=== PATIENT | female | born 1955 | race Caucasian/White ===

== ENCOUNTER → 2017-12-01 | Outpatient (CLI) | payer MEDICARE ==
[2017-12-01 15:51] LABS: MICROSCOPIC NOT IND
[2017-12-01 15:52] LABS: BASOPHILS # (AUTO) 0.05 x10^3/uL (0-0.1); BASOPHILS % (AUTO) 1 % (0-1); EOSINOPHILS # (AUTO) 0.34 x10^3/uL (0-0.4); EOSINOPHILS % (AUTO) 6 % (1-7); LYMPHOCYTES # (AUTO) 1.81 x10^3/uL (1-3.4); LYMPHOCYTES % (AUTO) 33 % (22-44); MD NO; MEAN CORPUSCULAR HGB CONC 33.5 g/dL (32.4-35.8); MEAN CORPUSCULAR VOLUME 86.4 fL (80-100); MEAN PLATELET VOLUME 8.4 fL (7.4-10.4); MONOCYTES # (AUTO) 0.48 x10^3/uL (0.2-0.8); MONOCYTES % (AUTO) 9 % (2-9); NEUTROPHILS # (AUTO) 2.91 x10^3/uL (1.8-6.8); NEUTROPHILS % (AUTO) 52 % (42-75); PLATELET COUNT 200 x10^3/uL (130-400); RED BLOOD COUNT 5.31 x10^6/uL (3.82-5.3); RED CELL DISTRIBUTION WIDTH 14.7 % (9.6-15.2)
[2017-12-01 15:53] LABS: CULTURE INDICATED? NO
[2017-12-01 16:01] LABS: INTERNATIONAL NORMALIZED RATIO 1.08 (0.93-1.1); PROTHROMBIN TIME 11.1 Seconds (9.6-11.5)
[2017-12-01 16:06] LABS: ALBUMIN 3.3 g/dL (3.4-5.0); ANION GAP 8 mmol/L (5-15); CHLORIDE 101 mmol/L (98-107)
[2017-12-01 16:08] LABS: ALANINE AMINOTRANSFERASE 46 U/L (12-78); ALKALINE PHOSPHATASE 110 U/L (45-117); BILIRUBIN,TOTAL 0.4 mg/dL (0.2-1.0); CREATININE 0.78 mg/dL (0.55-1.02); TOTAL PROTEIN 8.5 g/dL (6.4-8.2)
[2017-12-01 16:13] LABS: HEMOGLOBIN A1C 5.9 % (4.2-6.3)
== END | disposition home or self-care (01) ==
LOC: STAR 14:32
PROVIDERS: ATTEND Orthopaedic Surgery
DX: Z01.818 Encounter for other preprocedural examination (principal); I51.7 Cardiomegaly; R00.1 Bradycardia, unspecified; S32.45 Transverse fracture of acetabulum; X58.XXXD Exposure to other specified factors, subsequent encounter
CPT/HCPCS: 36415; 80053; 81003; 83036; 85025; 85610; 85730; 87081; 87806; 93005; G0475

== ENCOUNTER → 2017-12-03 | Outpatient (CLI) | payer MEDICARE ==
[~2017-12-03] MED LIST: ALBU18HF INH; ALBU5SOL6 INH; APOAEQUORIN PO; CHOL2000 PO; CLON-364 PO; FLUT1DIS IH; FOLI0.4T2 PO; GABA300C10 PO; Prevagen PO; THIA100T27 PO; TRAM50TA2 PO; TRAZ50TA18 PO; UMEC62.5 INH
[2017-12-03 15:01] LABS: AMPHETAMINE SCREEN, URINE Negative (Negative); BARBITURATE SCREEN, URINE Negative (Negative); BENZODIAZEPINE SCREEN, URINE Negative (Negative); CANNABINOID SCREEN, URINE Negative (Negative); COCAINE SCREEN, URINE Negative (Negative); METHADONE SCREEN, URINE Negative (Negative); OPIATE SCREEN, URINE Negative (Negative)
== END | disposition home or self-care (01) ==
LOC: STAR 14:01
PROVIDERS: ATTEND Orthopaedic Surgery
DX: Z01.818 Encounter for other preprocedural examination (principal); S32.45 Transverse fracture of acetabulum; X58.XXXD Exposure to other specified factors, subsequent encounter
CPT/HCPCS: 80307

== ENCOUNTER 2018-02-23 08:33 | Inpatient (IN) | payer MEDICARE ==
[~2018-02-23] VITALS: Ht 167.6 cm; Wt 90.1 kg
[~2018-02-23 08:33] MED LIST changes: -CLON-364 PO; +CLON0.5T11 PO; +EPINEPHRINE 1 MG/ML, 1ML ONE; +IBUP200C8 PO; +IPRA12.9 INH; +KETOROLAC 60 MG/2 ML ONE; +RANI150T4 PO; +ROPIvacaine/PF 0.2%, 20 ML ONE; +TRANEXAMIC ACID 100 MG/ML, 10ML ONE; +TRAZ-136 PO; -TRAZ50TA18 PO
[2018-02-23] MEDS ORDERED: LACTATED RINGERS 1,000 ML IV SCH (09:24)
[2018-02-23] MEDS ORDERED: ACETAMINOPHEN 500 MG TABLET PO ONE (09:30)
[2018-02-23] MEDS ORDERED: GABAPENTIN 300 MG CAPSULE PO ONE (09:30)
[2018-02-23 09:31] LABS: AMPHETAMINE SCREEN, URINE Negative (Negative); BARBITURATE SCREEN, URINE Negative (Negative); BENZODIAZEPINE SCREEN, URINE Negative (Negative); CANNABINOID SCREEN, URINE Negative (Negative); COCAINE SCREEN, URINE Negative (Negative); METHADONE SCREEN, URINE Negative (Negative); OPIATE SCREEN, URINE Negative (Negative)
[2018-02-23 09:34] VITALS: BP 145/92
[2018-02-23] MEDS ORDERED: QUET300T5 PO (09:40)
[2018-02-23] MEDS ORDERED: FENTANYL PF 250 MCG/5ML ONE (11:07)
[2018-02-23] MEDS ORDERED: MIDAZOLAM 1 MG/ML, 2ML ONE (11:07)
[2018-02-23] MEDS ORDERED: NEOSTIGMINE 1 MG/ML, 10ML ONE (11:08)
[2018-02-23] MEDS ORDERED: GLYCOPYRROLATE 0.4 MG/2 ML, 2ML ONE (11:08)
[2018-02-23] MEDS ORDERED: ROCURONIUM 10MG/ML,5ML ONE (11:08)
[2018-02-23] MEDS ORDERED: PROPOFOL 10 MG/ML, 20ML ONE (11:08)
[2018-02-23] MEDS ORDERED: CEFAZOLIN 1,000 MG ONE ×2 (11:09)
[2018-02-23] MEDS ORDERED: WATER-INJECTION,STERILE 10 ML IV ONE (11:09)
[2018-02-23] MEDS ORDERED: DEXAMETHASONE 4 MG/ML, 1ML ONE ×2 (11:10)
[2018-02-23] MEDS ORDERED: ONDANSETRON 2MG/ML, 2ML ONE ×2 (11:11)
[2018-02-23] MEDS ORDERED: PROMETHAZINE 12.5 MG SUPP PR PRN ×2 (12:30→15:00)
[2018-02-23] MEDS ORDERED: hydrALAzine 20 MG/ML, 1ML IV PRN (12:30)
[2018-02-23] MEDS ORDERED: PROMETHAZINE 25 MG SUPP PR PRN (12:30)
[2018-02-23] MEDS ORDERED: ONDANSETRON 2MG/ML, 2ML IV PRN ×2 (12:30→15:00)
[2018-02-23] MEDS ORDERED: PROMETHAZINE 25 MG/ML, 1ML IV PRN (12:30)
[2018-02-23] MEDS ORDERED: LABETALOL 5MG/ML, 20ML IV PRN (12:30)
[2018-02-23] MEDS ORDERED: MEPERIDINE/PF 25MG/0.5ML IVPush PRN (12:30)
[2018-02-23] MEDS ORDERED: ONDANSETRON ODT 8 MG PO PRN (12:30)
[2018-02-23] MEDS ORDERED: ALBUTEROL/IPRATROPIUM 2.5MG/0.5MG, 3 ML NPPB PRN (12:30)
[2018-02-23] MEDS ORDERED: OXYcodone 5 MG/5 ML ORAL.SOL UDC PO PRN (12:30)
[2018-02-23] MEDS ORDERED: MORPHINE SULFATE 4 MG/ML, 1ML IVPush PRN (12:30)
[2018-02-23] MEDS ORDERED: FENTANYL PF 100 MCG/2ML IV PRN (12:30)
[2018-02-23] MEDS ORDERED: HYDROmorphone 1 MG/ML, 1ML IV PRN ×2 (12:30→15:00)
[2018-02-23] MEDS ORDERED: PROMETHAZINE 25 MG/ML, 1ML IM PRN ×3 (12:30→15:00)
[2018-02-23] MEDS ORDERED: ALBUTEROL SULFATE 2.5 MG/3 ML NPPB PRN (12:30)
[2018-02-23] MEDS ORDERED: PHENYLEPHRINE 10 MG/ML ONE (12:45)
[2018-02-23] MEDS ORDERED: FENTANYL PF 100 MCG/2ML ONE (13:59)
[2018-02-23] MEDS ORDERED: MAGNESIUM HYDROXIDE 8%, 30ML UDC PO PRN (15:00)
[2018-02-23] MEDS ORDERED: DIPHENHYDRAMINE 25 MG CAPSULE PO PRN (15:00)
[2018-02-23] MEDS ORDERED: TRANEXAMIC ACID 1,000 MG in SODIUM CHLORIDE 0.9% 100 ML IVPB ONE (15:00)
[2018-02-23] MEDS ORDERED: BISACODYL 10 MG SUPP PR PRN (15:00)
[2018-02-23] MEDS ORDERED: SENNA/DOCUSATE TABLET PO PRN (15:00)
[2018-02-23] MEDS ORDERED: ONDANSETRON 4 MG TABLET PO PRN (15:00)
[2018-02-23] MEDS ORDERED: ACETAMINOPHEN 325 MG TABLET PO PRN (15:00)
[2018-02-23] MEDS ORDERED: ALUMINUM/MAG/SIMETHICONE 30 ML UDC PO PRN (15:00)
[2018-02-23] MEDS: OXYcodone IR 5MG TABLET PO PRN (17:20)
[2018-02-23] MEDS ORDERED: HYDROcodone/APAP 5/325 TABLET PO PRN (19:30)
[2018-02-23] MEDS ORDERED: D5%-0.45NACL+KCL 20MEQ 1,000 ML IV SCH (19:30)
[2018-02-23] MEDS ORDERED: morphine SULFATE 10 MG/ML, 1ML IVPush PRN (19:30)
[2018-02-23 20:00] VITALS: BP 100/69
[2018-02-23] MEDS: D5%-0.45NACL+KCL 20MEQ 1,000 ML IV SCH (20:54)
[2018-02-23] MEDS: FAMOTIDINE 20 MG TABLET PO SCH (20:55)
[2018-02-23] MEDS: DOCUSATE 100 MG CAPSULE PO SCH (20:55)
[2018-02-23] MEDS: CEFAZOLIN PMX 1GM/50ML 50 ML IVPB SCH (20:55)
[2018-02-23] MEDS ORDERED: QUETIAPINE 200 MG TABLET PO SCH (21:00)
[2018-02-23] MEDS: TRAZODONE 50MG TABLET PO SCH (21:00)
[2018-02-23] MEDS: GABAPENTIN 300 MG CAPSULE PO SCH (22:42)
[2018-02-23 23:49] VITALS: BP 108/62
[2018-02-24 02:50] VITALS: BP 142/75
[2018-02-24] MEDS: D5%-0.45NACL+KCL 20MEQ 1,000 ML IV SCH ×2 (04:36→17:00)
[2018-02-24] MEDS: ASPIRIN 81 MG TABLET EC PO SCH ×2 (04:43→17:40)
[2018-02-24] MEDS: CEFAZOLIN PMX 1GM/50ML 50 ML IVPB SCH (04:43)
[2018-02-24] MEDS ORDERED: DEXAMETHASONE 4 MG/ML, 1ML IVPush SCH (06:00)
[2018-02-24 07:43] VITALS: BP 97/63
[2018-02-24] MEDS: INCRUSE ELLIPTA 62.5 MG SCH (07:46)
[2018-02-24] MEDS: DOCUSATE 100 MG CAPSULE PO SCH ×2 (07:47→19:51)
[2018-02-24] MEDS: TAMSULOSIN 0.4 MG CAP.ER.24H PO SCH (07:47)
[2018-02-24] MEDS: GABAPENTIN 300 MG CAPSULE PO SCH ×3 (07:47→19:51)
[2018-02-24] MEDS: FAMOTIDINE 20 MG TABLET PO SCH ×2 (07:47→19:51)
[2018-02-24] MEDS: FOLIC ACID 1 MG TABLET PO SCH (07:50)
[2018-02-24] MEDS ORDERED: CELE200C PO (09:09)
[2018-02-24] MEDS ORDERED: TRAM50TA2 PO (09:09)
[2018-02-24] MEDS ORDERED: DOCU-131 PO (09:09)
[2018-02-24] MEDS ORDERED: ASPI-621 PO (09:09)
[2018-02-24] MEDS ORDERED: ONDA4TAB10 PO (09:09)
[2018-02-24] MEDS ORDERED: OXYC5CAP2 PO (09:10)
[2018-02-24 13:45] VITALS: BP 127/72
[2018-02-24] MEDS: KETOROLAC 30 MG/1 ML IV SCH ×2 (16:00→23:33)
[2018-02-24] MEDS: ALBUTEROL SULFATE 2.5 MG/3 ML NPPB PRN ×2 (16:09→20:45)
[2018-02-24] MEDS ORDERED: ASPIRIN 81 MG TABLET EC PO SCH (18:00)
[2018-02-24 19:33] VITALS: BP 106/67
[2018-02-24] MEDS: TRAZODONE 50MG TABLET PO SCH (19:51)
[2018-02-25 01:09] VITALS: BP 112/66
[2018-02-25] MEDS: D5%-0.45NACL+KCL 20MEQ 1,000 ML IV SCH ×2 (03:00→13:00)
[2018-02-25] MEDS: OXYcodone IR 5MG TABLET PO PRN ×2 (03:14→14:30)
[2018-02-25] MEDS: ASPIRIN 81 MG TABLET EC PO SCH (05:40)
[2018-02-25] MEDS: KETOROLAC 30 MG/1 ML IV SCH (08:29)
[2018-02-25] MEDS: GABAPENTIN 300 MG CAPSULE PO SCH (08:31)
[2018-02-25] MEDS: FOLIC ACID 1 MG TABLET PO SCH (08:32)
[2018-02-25] MEDS: FAMOTIDINE 20 MG TABLET PO SCH (08:32)
[2018-02-25] MEDS: DOCUSATE 100 MG CAPSULE PO SCH (08:32)
[2018-02-25] MEDS: TAMSULOSIN 0.4 MG CAP.ER.24H PO SCH (08:32)
[2018-02-25 09:00] VITALS: BP 107/61
[2018-02-25] MEDS: INCRUSE ELLIPTA 62.5 MG SCH (09:00)
[2018-02-25] MEDS: ALBUTEROL SULFATE 2.5 MG/3 ML NPPB PRN (11:14)
[2018-02-25 13:04] VITALS: BP 91/56
== END 2018-02-25 15:35 | disposition home health service (06) | DRG 470 ==
LOC: ORIP 08:33 → 4NOR 16:01 → DCLOUNGE 02-25 15:08
PROVIDERS: ADMIT Orthopaedic Surgery; ATTEND Orthopaedic Surgery
PROC: 2W6LXZZ Traction of Right Lower Extremity (ICD-10-PCS; 2018-02-23)
PROC: 0SR903Z Replacement of Right Hip Joint with Ceramic Synthetic Substitute, Open Approach (ICD-10-PCS; principal; 2018-02-23 12:30)
DX: M16.51 Unilateral post-traumatic osteoarthritis, right hip (principal); S32.401G Unspecified fracture of right acetabulum, subsequent encounter for fracture with delayed healing; Z87.81 Personal history of (healed) traumatic fracture
CPT/HCPCS: 36415; 72170; 80307; 85014; 85018; 86850; 86900; 94640; C1713; G0378; J0171; J0690; J1100; J1885; J2250; J2405; J2704; J2710; J2795; J3010; J7613; C1776; J2370; J3480; J7120; Q0163

== ENCOUNTER → 2018-06-12 | Outpatient (CLI) | payer MEDICARE ==
[~2018-06-12] MED LIST changes: +ASPI81TA45 PO; +CELE200C PO; +DOCU-131 PO; -EPINEPHRINE 1 MG/ML, 1ML ONE; -KETOROLAC 60 MG/2 ML ONE; +OMEP-110 PO; +ONDA4TAB10 PO; +ONDA4TAB13 SL; +OXYC5CAP2 PO; +QUET300T5 PO; -ROPIvacaine/PF 0.2%, 20 ML ONE; -TRANEXAMIC ACID 100 MG/ML, 10ML ONE; -TRAZ-136 PO; +TRAZ50TA66 PO
[2018-06-12 12:06] LABS: BASOPHILS # (AUTO) 0.03 x10^3/uL (0-0.1); BASOPHILS % (AUTO) 1 % (0-1); EOSINOPHILS % (AUTO) 7 % (1-7); LYMPHOCYTES # (AUTO) 1.32 x10^3/uL (1-3.4); LYMPHOCYTES % (AUTO) 23 % (22-44); MD NO; MEAN CORPUSCULAR HEMOGLOBIN 21.6 pg (27.0-34.8); MEAN CORPUSCULAR VOLUME 67.6 fL (80-100); MEAN PLATELET VOLUME 7.4 fL (7.4-10.4); MONOCYTES # (AUTO) 0.53 x10^3/uL (0.2-0.8); MONOCYTES % (AUTO) 9 % (2-9); NEUTROPHILS # (AUTO) 3.57 x10^3/uL (1.8-6.8); NEUTROPHILS % (AUTO) 61 % (42-75); PLATELET COUNT 227 x10^3/uL (130-400); RED BLOOD COUNT 5.39 x10^6/uL (3.82-5.3); RED CELL DISTRIBUTION WIDTH 21.8 % (9.6-15.2)
[2018-06-12 12:16] LABS: ALBUMIN 3.3 g/dL (3.4-5.0); ANION GAP 6 mmol/L (5-15); CALCIUM 9.2 mg/dL (8.5-10.1); CHLORIDE 108 mmol/L (98-107)
[2018-06-12 12:17] LABS: INTERNATIONAL NORMALIZED RATIO 1.08 (0.93-1.1); PROTHROMBIN TIME 11.4 Seconds (9.6-11.5)
[2018-06-12 12:22] LABS: ALANINE AMINOTRANSFERASE 39 U/L (12-78); ALKALINE PHOSPHATASE 117 U/L (45-117); BILIRUBIN,TOTAL 0.8 mg/dL (0.2-1.0); CREATININE 0.77 mg/dL (0.55-1.02); TOTAL PROTEIN 8.7 g/dL (6.4-8.2)
[2018-06-12 12:31] LABS: MICROSCOPIC INDICATED
[2018-06-12 12:35] LABS: CULTURE INDICATED? YES
[2018-06-12 12:51] LABS: HEMOGLOBIN A1C 6.3 % (4.2-6.3)
== END | disposition home or self-care (01) ==
LOC: STAR 10:44
PROVIDERS: ATTEND Orthopaedic Surgery
DX: Z01.818 Encounter for other preprocedural examination (principal); M16.12 Unilateral primary osteoarthritis, left hip
CPT/HCPCS: 36415; 80053; 81001; 83036; 85025; 85610; 85730; 87077; 87081; 87086; 87186; 87806; 93005; G0475